=== PATIENT | male | born 1980 | race Caucasian/White ===

== ENCOUNTER 2017-04-14 16:51 | Emergency (ER) | payer BC, MEDICAID, OTHER ==
[2017-04-14] MEDS ORDERED: Bacitracin Oint 1 GM U/D Packet TOP ONE (17:10)
[2017-04-14] MEDS ORDERED: Lidocaine 1% 20 ML MDV INJECT ONE (17:10)
--- NOTE | 2017-04-14 17:21 | EDM.PDOC ---
ED HPI GENERAL MEDICAL PROBLEM - General Chief Complaint: Laceration Stated Complaint: LACERATION LT INDEX FINGER Time Seen by Provider: 04/14/17 17:05 - History of Present Illness INITIAL COMMENTS - FREE TEXT/NARRATIVE: HISTORY AND PHYSICAL: History of present illness: The patient is a 37-year-old male who presents after cutting his left index finger with a chisel while he was working at home. The patient is right-hand dominant and he was unsure of his last tetanus shot but per the computer he had one in January 2014. The patient said he was in his usual state of good health when this injury occurred. He denies other injuries to the hand and fingers. He came in mostly because it would not stop bleeding but is able to move the finger without difficulty or weakness. Review of systems: As per history of present illness and below otherwise all systems reviewed and negative. Past medical history: As per history of present illness and as reviewed below otherwise noncontributory. Surgical history: As per history of present illness and as reviewed below otherwise noncontributory. Social history: No reported history of drug or alcohol abuse. Family history: As per history of present illness and as reviewed below otherwise noncontributory. Physical exam: Gen.: Well-developed well-nourished man who is nontoxic and speaking clearly and easily in the ED. HEENT: Atraumatic, normocephalic, negative for conjunctival pallor or scleral icterus, mucous membranes moist, throat clear, neck supple, nontender, trachea midline. Lungs: Clear to auscultation, breath sounds equal bilaterally, chest nontender. Heart: S1S2, regular rate and rhythm no overt murmurs Abdomen: Soft, nondistended, nontender. NABS Pelvis: Deferred Genitourinary: Deferred. Rectal: Deferred. Extremities: Atraumatic with the exception of the volar surface of the left index finger in the soft tissue of the middle phalanx where there is a linear 1 cm laceration with persistent oozing of blood despite pressure. The patient has no palpable bony deformities in the finger and he is able to flex against resistance with good strength. The legs are, negative for cords or calf pain. Neurovascular unremarkable. Neuro: Awake, alert, oriented. Cranial nerves II through XII unremarkable. Cerebellum unremarkable. Motor and sensory unremarkable throughout. Exam nonfocal. Diagnostics: none Therapeutics: Local wound care and suture repair. Procedure note: After the procedure was explained to the patient and the area was cleansed by nursing, the area was anesthetized locally with 1% lidocaine without epinephrine and the wound was explored. No foreign bodies were appreciated. The laceration was closed with simple interrupted sutures for a total number of# 3 4-0 nylon. There were no complications and a dressing with bacitracin was applied by nursing. 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 Left 2-Index finger Pain Score (Numeric/FACES): 3 - Related Data Allergies Allergy/AdvReac Type Severity Reaction Status Date / Time No Known Allergies Allergy Verified 02/08/14 14:30 Home Meds: Home Meds Cyclobenzaprine [Flexeril] 10 mg PRN 04/14/17 [History] Past Medical History - Past Health History Medical/Surgical History: Denies Medical/Surgical History - Infectious Disease History Infectious Disease History: Reports: None - Past Surgical History HEENT Surgical History: Reports: Other (See Below) Other HEENT Surgeries/Procedures: jaw fracture surgery Social & Family History - Family History Family Medical History: Noncontributory - Tobacco Use Smoking Status *Q: Current Every Day Smoker Years of Tobacco use: 20 Packs/Tins Daily: 1 - Alcohol Use Days Per Week of Alcohol Use: 1 Number of Drinks Per Day: 3 Total Drinks Per Week: 3 - Recreational Drug Use Recreational Drug Use: No ED ROS GENERAL - Review of Systems Review Of Systems: ROS reveals no pertinent complaints other than HPI. ED EXAM, SKIN/RASH Exam: See Below (See dictation) Course - Vital Signs Last Recorded V/S: Last Vital Signs Temp 36.2 C 04/14/17 17:02 Pulse 97 04/14/17 17:02 Resp 97 H 04/14/17 17:02 BP 138/83 04/14/17 17:02 Pulse Ox 97 04/14/17 17:02 - Orders/Labs/Meds Orders: Active Orders 24 hr Category Date Time Status Communication Order [RC] STAT Care 04/14/17 17:10 Active Meds: Medications Discontinued Medications Generic Name Dose Route Start Last Admin Trade Name Freq PRN Reason Stop Dose Admin Bacitracin 1 dose 04/14/17 17:10 04/14/17 17:41 Bacitracin Oint 1 Gm TOP 04/14/17 17:11 1 dose ONETIME ONE Administration Lidocaine HCl 20 ml 04/14/17 17:10 04/14/17 17:41 Xylocaine 1% INJECT 04/14/17 17:11 20 ml ONETIME ONE Administration Departure - Departure Time of Disposition: 17:45 Disposition: Home, Self-Care 01 Condition: Good Clinical Impression: Laceration of finger of left hand Qualifiers: Encounter type: initial encounter Finger: index finger Damage to nail status: without damage Foreign body presence: without foreign body Qualified Code(s): S61.211A - Laceration without foreign body of left index finger without damage to nail, initial encounter - Discharge Information Referrals: PCP,None [Primary Care Provider] - Forms: ED Department Discharge Additional Instructions: The following information is given to patients seen in the emergency department who are being discharged to home. This information is to outline your options for follow-up care. We provide all patients seen in our emergency department with a follow-up referral. The need for follow-up, as well as the timing and circumstances, are variable depending upon the specifics of your emergency department visit. If you don't have a primary care physician on staff, we will provide you with a referral. We always advise you to contact your personal physician following an emergency department visit to inform them of the circumstance of the visit and for follow-up with them and/or the need for any referrals to a consulting specialist. The emergency department will also refer you to a specialist when appropriate. This referral assures that you have the opportunity for followup care with a specialist. All of these measure are taken in an effort to provide you with optimal care, which includes your followup. Under all circumstances we always encourage you to contact your private physician who remains a resource for coordinating your care. When calling for followup care, please make the office aware that this follow-up is from your recent emergency room visit. If for any reason you are refused follow-up, please contact the [facility] emergency department at and ask to speak to the emergency department charge nurse. [facility] Primary care- [place] [address] Keep the area clean and dry for 24 hours then remove the dressing and cleanse the areas with mild soap and water. Patchy right and apply bacitracin or Neosporin. Please only apply the ointment for 2 days and then stop. Sutures should be removed in 7 days either here in the emergency department or with your primary care physician. Return to ER as needed and as directed sooner if necessary - My Orders Last 24 Hours: My Active Orders 04/14/17 17:10 Communication Order [RC] STAT - Assessment/Plan Last 24 Hours: My Active Orders 04/14/17 17:10 Communication Order [RC] STAT
[2017-04-14 17:52] VITALS: BP 119/78
== END 2017-04-14 17:52 | disposition home or self-care (01) ==
LOC: MW.ED 16:51
DX: S61.211A Laceration without foreign body of left index finger without damage to nail, initial encounter (principal); F17.210 Nicotine dependence, cigarettes, uncomplicated; Z98.890 Other specified postprocedural states; W45.8XXA Other foreign body or object entering through skin, initial encounter; Y92.009 Unspecified place in unspecified non-institutional (private) residence as the place of occurrence of the external cause
CPT/HCPCS: 12001; 99282

== ENCOUNTER 2019-10-07 20:31 | Emergency (ER) | payer MEDICAID, OTHER ==
[2019-10-07 20:45] VITALS: BP 176/112; PULSE 106
[2019-10-07] MEDS ORDERED: Benzocaine 20% Topical Spray UD MUCMEM ONE (20:52)
[2019-10-07] MEDS ORDERED: Clindamycin HCl 150 MG Cap PO ONE (20:52)
[2019-10-07] MEDS ORDERED: Lidocaine 2% Viscous Solution 15 ML Cup PO ONE (20:52)
--- NOTE | 2019-10-07 20:58 | EDM.PDOC ---
ED HPI GENERAL MEDICAL PROBLEM - General Chief Complaint: ENT Problem Stated Complaint: TOOTH PAIN Time Seen by Provider: 10/07/19 20:46 Source of Information: Reports: Patient History Limitations: Reports: No Limitations - History of Present Illness INITIAL COMMENTS - FREE TEXT/NARRATIVE: HISTORY AND PHYSICAL: History of present illness: Patient is a 39-year-old male who presents to the ED today with concern of a dental abscess over the past 2 days. Patient states he has had multiple abscess in the past and that his symptoms today are similar to past abscess. Patient states he started noticing dental pain on the top left 2 days ago and since then has had increasing swelling. Patient states in the past he has been given antibiotics and has had resolution of his symptoms. Patient denies any other symptoms or concerns. Patient denies fever, chills, chest pain, shortness of breath, or cough. Denies headache, neck stiff ness, change in vision, syncope, or near syncope. Denies nausea, vomiting, abdominal pain, diarrhea, constipation, or dysuria. Has not noted any blood in urine or stool. Patient has been eating and drinking appropriately. Review of systems: As per history of present illness and below otherwise all systems reviewed and negative. Past medical history: As per history of present illness and as reviewed below otherwise noncontributory. Surgical history: As per history of present illness and as reviewed below otherwise noncontributory. Social history: See social history for further information Family history: As per history of present illness and as reviewed below otherwise noncontributory. Physical exam: General: Patient is alert, oriented, and in no acute distress. Patient sitting comfortably on exam table. HEENT: Atraumatic, normocephalic, pupils equal and reactive bilaterally, negative for conjunctival pallor or scleral icterus, mucous membranes moist, TMs normal bilaterally, throat clear, neck supple, nontender, trachea midline. No drooling or trismus noted. No meningeal signs. No hot potato voice noted. Very poor dentition with teeth in various states of erosion. The gumline from teeth 13-15 is edematous and erythematous. There is adjacent mild edema of the adjacent maxilla. Lungs: Clear to auscultation, breath sounds equal bilaterally, chest nontender. Heart: S1S2, regular rate and rhythm without overt murmur Abdomen: Soft, nondistended, nontender. Negative for masses or hepatosplenomegaly. Negative for costovertebral tenderness. Pelvis: Stable nontender. Genitourinary: Deferred. Rectal: Deferred. Skin: Intact, warm, dry. No lesions or rashes noted. Extremities: Atraumatic, negative for cords or calf pain. Neurovascular unremarkable. Neuro: Awake, alert, oriented. Cranial nerves II through XII unremarkable. Cerebellum unremarkable. Motor and sensory unremarkable throughout. Exam nonfocal. Notes: Discussed importance for follow-up with a dentist. Voices understanding and is agreeable to plan of care. Denies any further questions or concerns at this time. Diagnostics: None Therapeutics: Dental balls (clindamycin, 1st dose given in ED as pharmacies closed) Prescription: Clindamycin Impression: Dental abscess Plan: 1. Please take medication as prescribed. 2. Tylenol and/or ibuprofen as directed and as needed for pain management. 3. "Tooth Balls" have been given to you; apply along the gumline every 2-3 hours as needed. Do not swallow these; external use only. 4. Follow-up with a dentist for definitive care. Return to the ED as needed and as discussed. Definitive disposition and diagnosis as appropriate pending reevaluation and review of above. Left Oral/Mouth Pain Score (Numeric/FACES): 10 - Related Data Allergies Allergy/AdvReac Type Severity Reaction Status Date / Time No Known Allergies Allergy Verified 10/07/19 20:41 Home Meds: Home Meds Cyclobenzaprine [Flexeril] 10 mg PRN 04/14/17 [History] Clindamycin HCl 300 mg PO TID 10 Days #30 capsule 10/07/19 [Rx] Diclofenac Sodium 75 mg PO BID 10/07/19 [History] buPROPion [Wellbutrin] 75 mg PO DAILY 10/07/19 [History] Past Medical History - Past Health History Medical/Surgical History: Denies Medical/Surgical History - Infectious Disease History Infectious Disease History: Reports: Chicken Pox - Past Surgical History HEENT Surgical History: Reports: Other (See Below) Other HEENT Surgeries/Procedures: jaw fracture surgery Social & Family History - Family History Family Medical History: Noncontributory - Tobacco Use Smoking Status *Q: Current Every Day Smoker Years of Tobacco use: 20 Packs/Tins Daily: 1 - Caffeine Use Caffeine Use: Reports: Soda - Recreational Drug Use Recreational Drug Use: No ED ROS GENERAL - Review of Systems Review Of Systems: Comprehensive ROS is negative, except as noted in HPI. ED EXAM, GENERAL - Physical Exam Exam: See Below (see dictation) Course - Vital Signs Last Recorded V/S: Last Vital Signs Temp 97.8 F 10/07/19 20:42 Pulse 106 H 10/07/19 20:42 Resp 17 10/07/19 20:42 BP 176/112 H 10/07/19 20:42 Pulse Ox 99 10/07/19 20:42 - Orders/Labs/Meds Meds: Medications Discontinued Medications Generic Name Dose Route Start Last Admin Trade Name Freq PRN Reason Stop Dose Admin Benzocaine 2 each 10/07/19 20:52 Hurricaine One 20% MUCMEM 10/07/19 20:53 ONETIME ONE Clindamycin HCl 300 mg 10/07/19 20:52 Cleocin PO 10/07/19 20:53 ONETIME ONE Lidocaine HCl 15 ml 10/07/19 20:52 Xylocaine 2% Viscous PO 10/07/19 20:53 ONETIME ONE Departure - Departure Time of Disposition: 20:58 Disposition: Home, Self-Care 01 Clinical Impression: Dental abscess - Discharge Information Prescriptions: Clindamycin HCl 300 mg PO TID 10 Days #30 capsule Referrals: Seamus Gomez MD [Primary Care Provider] - Additional Instructions: The following information is given to patients seen in the emergency department who are being discharged to home. This information is to outline your options for follow-up care. We provide all patients seen in our emergency department with a follow-up referral. The need for follow-up, as well as the timing and circumstances, are variable depending upon the specifics of your emergency department visit. If you don't have a primary care physician on staff, we will provide you with a referral. We always advise you to contact your personal physician following an emergency department visit to inform them of the circumstance of the visit and for follow-up with them and/or the need for any referrals to a consulting specialist. The emergency department will also refer you to a specialist when appropriate. This referral assures that you have the opportunity for follow-up care with a specialist. All of these measure are taken in an effort to provide you with optimal care, which includes your follow-up. Under all circumstances we always encourage you to contact your private physician who remains a resource for coordinating your care. When calling for follow-up care, please make the office aware that this follow-up is from your recent emergency room visit. If for any reason you are refused follow-up, please contact the [facility] Emergency Department at and asked to speak to the emergency department charge nurse. [facility] [address], [place] [address] [facility] [address] [place] [address] 1. Please take medication as prescribed. 2. Tylenol and/or ibuprofen as directed and as needed for pain management. 3. "Tooth Balls" have been given to you; apply along the gumline every 2-3 hours as needed. Do not swallow these; external use only. 4. Follow-up with a dentist for definitive care. Return to the ED as needed and as discussed. Sepsis Event Note - Evaluation Sepsis Screening Result: No Definite Risk - Focused Exam Vital Signs: Vital Signs Temp Pulse Resp BP Pulse Ox 10/07/19 20:42 97.8 F 106 H 17 176/112 H 99 Date Exam was Performed: 10/07/19 Time Exam was Performed: 20:55
== END 2019-10-07 21:36 | disposition home or self-care (01) ==
LOC: MW.ED 20:31
DX: K04.7 Periapical abscess without sinus (principal); F17.210 Nicotine dependence, cigarettes, uncomplicated
CPT/HCPCS: 99282; A9270; 99283

== ENCOUNTER 2020-08-15 16:38 | Emergency (ER) | payer SELFPAY ==
[2020-08-15] MEDS ORDERED: Ketorolac 60 MG/2 ML SDV IM ONE (17:37)
[2020-08-15] MEDS ORDERED: traMADol 50 MG Tab PO ONE (17:37)
[2020-08-15] MEDS ORDERED: methylPREDNISolone Sodium Succinate 125 MG/2 ML SDV IM ONE (18:12)
--- NOTE | 2020-08-15 18:20 | EDM.PDOC ---
ED HPI GENERAL MEDICAL PROBLEM - General Chief Complaint: Back Pain or Injury Stated Complaint: BACK PAIN Time Seen by Provider: 08/15/20 17:03 Source of Information: Reports: Patient History Limitations: Reports: No Limitations - History of Present Illness INITIAL COMMENTS - FREE TEXT/NARRATIVE: HISTORY AND PHYSICAL: History of present illness: Patient is a 40-year-old male who presents to the ED today with concern of right-sided sciatic back pain that has been ongoing for the past 4 to 5 weeks. Patient states 4 to 5 weeks ago he was changing out his tire when he felt a p ulling sensation in his right sciatic area. Patient states he has had a history of sciatic issues in the past and that his pain feels similar today but is worse than his sciatic pain has been before. Patient states the pain starts right above his right buttocks and shoots down the back of his right leg. Patient denies any weakness associated with it. Patient denies any new or direct trauma or injury. Patient denies any loss or retention of bowel bladder function or saddle anesthesia. Patient states that he was seen yesterday in the clinic and was given Flexeril. Patient states he has been taking Flexeril without relief of symptoms. Patient states he last took Flexeril at 11 am today but has not taken any other medications today. Patient denies any other health history or any other symptoms or concerns. Patient denies fever, chills, chest pain, shortness of breath, or cough. Denies headache, neck stiff ness, change in vision, syncope, or near syncope. Denies nausea, vomiting, abdominal pain, diarrhea, constipation, or dysuria. Has not noted any blood in urine or stool. Patient has been eating and drinking appropriately. Review of systems: As per history of present illness and below otherwise all systems reviewed and negative. Past medical history: As per history of present illness and as reviewed below otherwise noncontributory. Surgical history: As per history of present illness and as reviewed below otherwise noncontributory. Social history: See social history for further information Family history: As per history of present illness and as reviewed below otherwise noncontributory. Physical exam: General: Patient is alert, oriented, and in no acute distress. Patient laying on exam table, tearful on exam holding right buttock area, but non toxic appearing. HEENT: Atraumatic, normocephalic, pupils equal and reactive bilaterally, negative for conjunctival pallor or scleral icterus, mucous membranes moist, TMs normal bilaterally, throat clear, neck supple, nontender, trachea midline. No drooling or trismus noted. No meningeal signs. No hot potato voice noted. Lungs: Clear to auscultation, breath sounds equal bilaterally, chest nontender. Heart: S1S2, regular rate and rhythm without overt murmur Abdomen: Soft, nondistended, nontender. Negative for masses or hepatosplenomegaly. Negative for costovertebral tenderness. Pelvis: Stable nontender. Genitourinary: Deferred. Rectal: Deferred. Skin: Intact, warm, dry. No lesions or rashes noted. Extremities/musculoskeletal: Patient did ambulate into the ED today per self without assistance. No obvious deformity of the complete spine. No step-offs, crepitus, or point tenderness to palpation of the spinous process of complete spine. Patient does have moderate pain with palpation of the right sided lumbar paraspinous muscle as well as into the right sided SI joint with recreation of symptoms on palpation. Heel/toe gait unable to be assessed as patient states "he does not want to stand right now" but patellar reflexes intact bilaterally, SLR intact bilaterally, full ROM of bilateral upper and lower extremities without difficulty. Otherwise, atraumatic, negative for cords or calf pain. N eurovascular unremarkable. Neuro: Awake, alert, oriented. Cranial nerves II through XII unremarkable. Cerebellum unremarkable. Motor and sensory unremarkable throughout. Exam nonfocal. Notes: Upon reevaluation of patient, he is much more comfortable with therapeutics given today in the emergency room. Patient is able to ambulate without difficulty and heel toe gait is intact. Vitals remained stable. Signs and symptoms that would prompt return to the ED thoroughly discussed with patient. Discussed importance for follow-up with his primary care provider. Voices understanding and is agreeable to plan of care. Denies any further questions or concerns at this time. Diagnostics: lumbar XR, pelvic XR Therapeutics: Toradol, Solumedrol, Tramadol Prescription: Diclofenac, medrol dose pack Impression: Low back pain with right-sided sciatica Plan: 1. The medication you received today does cause drowsiness, so do not drive for the remaining day. 2. When resting please lay on a flat firm surface. Limit your mobility to prevent muscle stiffness. Get up to ambulate/move around/gentle stretching multiple times throughout the day. May alternate heat and ice to painful areas. 3. Tylenol as needed for back pain. Otherwise, take the priorly prescribed Flexeril and diclofenac as directed. Diclofenac as an anti-inflammatory medication so do not take any additional NSAIDs with this medication, such as naproxen, ibuprofen, or Aleve. Flexeril, this medication may cause drowsiness, so do not take it while driving or needing to be functioning outside of the home. 4. Follow-up with your primary care provider as discussed. Return to the ED as needed and as discussed. Definitive disposition and diagnosis as appropriate pending reevaluation and review of above. back Pain Score (Numeric/FACES): 10 - Related Data Allergies Allergy/AdvReac Type Severity Reaction Status Date / Time No Known Allergies Allergy Verified 08/15/20 17:07 Home Meds: Home Meds Cyclobenzaprine [Flexeril] 10 mg PO DAILY PRN 04/14/17 [History] Diclofenac Sodium [Voltaren] 75 mg PO BIDMEALS PRN #15 tab.cr 08/15/20 [Rx] methylPREDNISolone [Medrol] 4 mg PO ASDIRECTED #1 dosepk 08/15/20 [Rx] Past Medical History - Past Health History Medical/Surgical History: Denies Medical/Surgical History Neurological History: Reports: Other (See Below) Other Neuro History: sciatica Psychiatric History: Reports: Anxiety, Depression - Infectious Disease History Infectious Disease History: Reports: Chicken Pox - Past Surgical History HEENT Surgical History: Reports: Other (See Below) Other HEENT Surgeries/Procedures: jaw fracture surgery Neurological Surgical History: Reports: None Social & Family History - Family History Family Medical History: No Pertinent Family History - Tobacco Use Tobacco Use Status *Q: Current Every Day Tobacco User Years of Tobacco use: 20 Packs/Tins Daily: 0.5 - Caffeine Use Caffeine Use: Reports: Coffee - Recreational Drug Use Recreational Drug Use: No ED ROS GENERAL - Review of Systems Review Of Systems: Comprehensive ROS is negative, except as noted in HPI. ED EXAM, GENERAL - Physical Exam Exam: See Below (see dictation) Course - Vital Signs Last Recorded V/S: Last Vital Signs Temp 98.6 F 08/15/20 19:24 Pulse 82 08/15/20 19:24 Resp 19 08/15/20 19:24 BP 148/93 H 08/15/20 19:24 Pulse Ox 98 08/15/20 19:24 - Orders/Labs/Meds Labs: Laboratory Tests 08/15/20 Range/Units 17:15 Urine Color YELLOW Urine Appearance CLEAR Urine pH 6.5 (5.0-8.0) Ur Specific Baggs 1.025 (1.001-1.035) Urine Protein NEGATIVE (NEGATIVE) mg/dL Urine Glucose (UA) NEGATIVE (NEGATIVE) mg/dL Urine Ketones NEGATIVE (NEGATIVE) mg/dL Urine Occult Blood NEGATIVE (NEGATIVE) Urine Nitrite NEGATIVE (NEGATIVE) Urine Bilirubin NEGATIVE (NEGATIVE) Urine Urobilinogen 0.2 (<2.0) EU/dL Ur Leukocyte Esterase NEGATIVE (NEGATIVE) Meds: Medications Discontinued Medications Generic Name Dose Route Start Last Admin Trade Name Freq PRN Reason Stop Dose Admin Ketorolac Tromethamine 60 mg 08/15/20 17:37 08/15/20 17:47 Toradol IM 08/15/20 17:38 60 mg ONETIME ONE Administration Methylprednisolone Sodium Succinate 125 mg 08/15/20 18:12 08/15/20 18:57 Solu-Medrol IM 08/15/20 18:13 125 mg ONETIME ONE Administration Tramadol HCl 50 mg 08/15/20 17:37 08/15/20 17:44 Ultram PO 08/15/20 17:38 50 mg ONETIME ONE Administration Departure - Departure Time of Disposition: 19:12 Disposition: Home, Self-Care 01 Clinical Impression: Low back pain Qualifiers: Chronicity: acute Back pain laterality: right Sciatica presence: with sciatica Sciatica laterality: sciatica of right side Qualified Code(s): M54.41 - Lumbago with sciatica, right side - Discharge Information Prescriptions: methylPREDNISolone [Medrol] 4 mg PO ASDIRECTED #1 dosepk Diclofenac Sodium [Voltaren] 75 mg PO BIDMEALS PRN #15 tab.cr PRN Reason: Pain Instructions: Chronic Back Pain Referrals: PCP,None [Primary Care Provider] - Forms: ED Department Discharge Additional Instructions: The following information is given to patients seen in the emergency department who are being discharged to home. This information is to outline your options for follow-up care. We provide all patients seen in our emergency department with a follow-up referral. The need for follow-up, as well as the timing and circumstances, are variable depending upon the specifics of your emergency department visit. If you don't have a primary care physician on staff, we will provide you with a referral. We always advise you to contact your personal physician following an emergency department visit to inform them of the circumstance of the visit and for follow-up with them and/or the need for any referrals to a consulting specialist. The emergency department will also refer you to a specialist when appropriate. This referral assures that you have the opportunity for follow-up care with a specialist. All of these measure are taken in an effort to provide you with optimal care, which includes your follow-up. Under all circumstances we always encourage you to contact your private physician who remains a resource for coordinating your care. When calling for follow-up care, please make the office aware that this follow-up is from your recent emergency room visit. If for any reason you are refused follow-up, please contact the Emergency Department at and asked to speak to the emergency department charge nurse. Primary Care [address] [place] [id number] [place] [address] 1. The medication you received today does cause drowsiness, so do not drive for the remaining day. 2. When resting please lay on a flat firm surface. Limit your mobility to prevent muscle stiffness. Get up to ambulate/move around/gentle stretching multiple times throughout the day. May alternate heat and ice to painful areas. 3. Tylenol as needed for back pain. Otherwise, take the priorly prescribed Flexeril and diclofenac as directed. Diclofenac as an anti-inflammatory medication so do not take any additional NSAIDs with this medication, such as naproxen, ibuprofen, or Aleve. Flexeril, this medication may cause drowsiness, so do not take it while driving or needing to be functioning outside of the home. 4. Follow-up with your primary care provider as discussed. Return to the ED as needed and as discussed. Sepsis Event Note (ED) - Evaluation Sepsis Screening Result: No Definite Risk - Focused Exam Vital Signs: Vital Signs Temp Pulse Resp BP Pulse Ox 08/15/20 19:24 98.6 F 82 19 148/93 H 98 08/15/20 18:45 56 L 17 121/75 98 08/15/20 17:00 97.3 F 81 17 164/100 H 98
--- NOTE | 2020-08-15 18:54 | CR ---
INDICATION: Pain TECHNIQUE: AP, Lateral, views of the lumbar spine were obtained COMPARISON: None available. FINDINGS: Vertebral bodies: The lumbar vertebral body heights demonstrate likely endplate Schmorl`s defect of the superior L3 endplate with mild straightening of the normal lumbar lordosis. Otherwise, the vertebral body heights are grossly maintained. Joints: There is mild multilevel degenerative disc disease with mild disc height loss. There is mild facet arthrosis. Soft tissues: Unremarkable. IMPRESSION: Mild degenerative changes of the lumbar spine without acute osseous abnormality. Small endplate Schmorl`s defect of the L3 level is noted. Dictated by Omar Nicholas MD @ Aug 15 2020 6:50PM Signed by Dr. Omar Nicholas @ Aug 15 2020 6:53PM
--- NOTE | 2020-08-15 18:58 | CR ---
INDICATION: Pain TECHNIQUE: Single AP view pelvis COMPARISONS: None available. FINDINGS: Femoral heads are well-seated in the acetabula. There is no displaced fracture, dislocation or acute osseous abnormality. There is no significant degenerative change. The soft tissues are unremarkable. IMPRESSION: No acute osseous abnormality. Dictated by Omar Nicholas MD @ Aug 15 2020 6:54PM Signed by Dr. Omar Nicholas @ Aug 15 2020 6:57PM
[2020-08-15 19:37] VITALS: BP 148/93; PULSE 82
== END 2020-08-15 19:26 | disposition home or self-care (01) ==
LOC: MW.ED 16:38
DX: M54.41 Lumbago with sciatica, right side (principal); F17.210 Nicotine dependence, cigarettes, uncomplicated
CPT/HCPCS: 72100; 72170; 81003; 96372; 99283; A9270; J1885; J2930

== ENCOUNTER 2023-07-20 04:01 | Emergency (ER) | payer BC ==
[2023-07-20 20:04] VITALS: BP 140/99; PULSE 108
== END 2023-07-20 04:35 | disposition home or self-care (01) ==
LOC: MW.ED 04:01
DX: M25.552 Pain in left hip (principal); F19.239 Other psychoactive substance dependence with withdrawal, unspecified; Z02.89 Encounter for other administrative examinations; V89.2XXA Person injured in unspecified motor-vehicle accident, traffic, initial encounter; Y92.410 Unspecified street and highway as the place of occurrence of the external cause
CPT/HCPCS: 99283

== ENCOUNTER 2024-04-02 20:12 | Emergency (ER) | payer BC ==
[2024-04-02] MEDS: Ketorolac 30 MG/ML SDV IVPUSH STA (21:06)
[2024-04-02] MEDS: Sodium Chloride 0.9% 1,000 ML IV STA (21:06)
[2024-04-02] MEDS: Ondansetron 4 MG/2 ML SDV IVPUSH STA (21:07)
[2024-04-02 21:11] LABS: BASOPHILS ABSOLUTE AUTO 0.05 K/uL (0.00-0.20); BASOPHILS PERCENT AUTO 0.6 % (0.0-1.0); EOSINOPHILS ABSOLUTE AUTO 0.09 K/uL (0.00-0.45); EOSINOPHILS PERCENT AUTO 1.2 % (0.0-6.0); HEMATOCRIT 46.5 % (42.0-52.0); HEMOGLOBIN 16.2 g/dL (14.0-18.0); IMMATURE GRAN ABSOLUTE AUTO 0.01 K/uL (0.00-0.05); IMMATURE GRAN PERCENT AUTO 0.1 % (0.0-0.4); LYMPHOCYTES PERCENT AUTO 38.5 % (24.0-44.0); MEAN CORPUSCULAR HEMOGLOBIN 31.7 pg (28.0-32.0); MEAN CORPUSCULAR HGB CONC 34.8 g/dL (32.0-36.0); MEAN PLATELET VOLUME 8.8 fL (9.4-12.4); MONOCYTES PERCENT AUTO 10.3 % (0.0-8.0); NEUTROPHILS ABSOLUTE AUTO 3.85 K/uL (1.80-7.70); NEUTROPHILS PERCENT AUTO 49.3 % (41.0-71.0); PLATELET COUNT,PLT 295 K/uL (150-400); RED BLOOD CELL COUNT 5.11 M/uL (4.52-5.90)
[2024-04-02] MEDS: HYDROmorphone 1 MG/ML Syringe IVPUSH STA (21:48)
[2024-04-02 22:45] LABS: ALBUMIN 3.7 g/dL (3.4-5.0); BILIRUBIN TOTAL 0.3 mg/dL (0.2-1.0); CALCIUM 9.3 mg/dL (8.5-10.1); CARBON DIOXIDE,CO2 25.9 mmol/L (21.0-32.0); CREATININE 1.3 mg/dL (0.8-1.3); EST CRCL DRUG DOSING (CG) 67.09 mL/min; PROTEIN TOTAL,TP 7.5 g/dL (6.4-8.2)
[2024-04-02] MEDS: Tamsulosin 0.4 MG Cap.ER PO STA (23:18)
[2024-04-02 23:21] VITALS: BP 130/85; PULSE 78
== END 2024-04-02 23:21 | disposition home or self-care (01) ==
LOC: MW.ED 20:12
DX: N13.2 Hydronephrosis with renal and ureteral calculous obstruction (principal); I10 Essential (primary) hypertension; Z79.899 Other long term (current) drug therapy; Z75.8 Other problems related to medical facilities and other health care
CPT/HCPCS: 36415; 74176; 80053; 83690; 85025; 96361; 96374; 96375; 99284; A9270; J1170; J1885; J2405; J7030

== ENCOUNTER 2024-07-19 18:26 | Emergency (ER) | payer SELFPAY ==
[2024-07-19] MEDS: Tetracaine HCl/PF 0.5% 4 ML Bottle EYEBOTH ONE (20:05)
[2024-07-19] MEDS: Fluorescein 1 MG Ophth Strip EYELF ONE (20:05)
[2024-07-19] MEDS: Acetaminophen 500 MG Tab PO ONE (22:07)
[2024-07-19] MEDS: Ketorolac 30 MG/ML SDV IM ONE (22:10)
[2024-07-19] MEDS: Erythromycin Base 0.5% Ophth Oint 1 GM Tube EYERT ONE (22:11)
[2024-07-19 22:32] VITALS: BP 138/75; PULSE 74
== END 2024-07-19 22:25 | disposition home or self-care (01) ==
LOC: MW.ED 18:26
DX: T15.01XA Foreign body in cornea, right eye, initial encounter (principal)
CPT/HCPCS: 65220; 96372; 99283; A9270; J1885; J3490

== ENCOUNTER 2024-11-14 15:36 | Emergency (ER) | payer BC ==
[2024-11-14] MEDS: Lidocaine 1% 10 ML MDV INJECT STA (16:14)
[2024-11-14] MEDS: ceFAZolin 1 GM Vial IM STA (17:19)
[2024-11-14] MEDS: Diphtheria,Pertussis(Acell),Tetanus Vaccine 0.5 ML Syringe IM ONE (17:19)
[2024-11-14] MEDS: Water For Injection, Sterile 10 ML SDV INJECT ONE (17:20)
[2024-11-14 18:26] VITALS: BP 146/95; PULSE 84
== END 2024-11-14 18:37 | disposition home or self-care (01) ==
LOC: MW.ED 15:36
DX: S62.635B Displaced fracture of distal phalanx of left ring finger, initial encounter for open fracture (principal); E78.00 Pure hypercholesterolemia, unspecified; F17.210 Nicotine dependence, cigarettes, uncomplicated; Z75.8 Other problems related to medical facilities and other health care; Z79.899 Other long term (current) drug therapy; Z23 Encounter for immunization; W20.8XXA Other cause of strike by thrown, projected or falling object, initial encounter; Y93.89 Activity, other specified
CPT/HCPCS: 12002; 73140; 90471; 90715; 96372; 99283; J0690; J2003